=== PATIENT | male | born 1995 | race Caucasian/White ===

== ENCOUNTER 2022-02-15 13:45 | Emergency (ER) | payer BC ==
[~2022-02-15] VITALS: Ht 165.1 cm; Wt 72.6 kg
[2022-02-15 14:01] VITALS: BP 115/66
[2022-02-15] MEDS ORDERED: IBUPROFEN 600 MG TABLET PO ONE (15:00)
[2022-02-15] MEDS ORDERED: IBUPROFEN 600 MG TABLET ONE (15:00)
--- NOTE | 2022-02-15 15:40 | NUR ---
RAPID STREP DONE AND SENT TO LAB
[2022-02-15] MEDS ORDERED: IBUP-1957 PO (16:41)
== END 2022-02-15 16:52 | disposition home or self-care (01) ==
LOC: ER 13:45
DX: J06.9 Acute upper respiratory infection, unspecified (principal)
CPT/HCPCS: 86403-TC; 87070-TC